=== PATIENT | female | born 2000 | race Caucasian/White ===

== ENCOUNTER → 2021-04-19 | Outpatient (CLI) | payer BC ==
[2021-04-19 13:22] LABS: BASO % 0.3 % (0.0-1.0); EOS # 0.1 10^3/uL (0.0-0.5); EOS % 0.8 % (0.0-3.0); HEMATOCRIT 38.4 % (36.0-47.0); HEMOGLOBIN 12.4 g/dl (12.0-15.5); LYMPH # 1.3 10^3/uL (1.5-5.0); LYMPH % 17.4 % (24.0-44.0); MEAN CORPUSCULAR HEMOGLOBIN 26.8 pg (27.0-33.0); MEAN CORPUSCULAR HGB CONC 32.3 g/dl (32.0-36.5); MEAN CORPUSCULAR VOLUME 82.9 fl (80.0-96.0); MONO # 0.5 10^3/uL (0.0-0.8); MONO % 6.9 % (2.0-8.0); NEUTROPHILS # 5.7 10^3/uL (1.5-8.5); NEUTROPHILS % 74.5 % (36.0-66.0); PLATELET COUNT, AUTOMATED 312 10^3/uL (150-450); RED BLOOD COUNT 4.63 10^6/uL (4.00-5.40); WHITE BLOOD COUNT 7.6 10^3/uL (4.0-10.0)
[2021-04-19 14:41] LABS: HEPATITIS C VIRUS ABY INDEX 0.1 INDEX (<0.8); HIV 1&2 SCREEN CENTAUR NEGATIVE (NEGATIVE)
[2021-04-19 16:51] LABS: GC DNA AMPLIFICATION NEGATIVE (NEGATIVE)
== END ==
LOC: M PLALAB 09:50
PROVIDERS: ATTEND Specialist
DX: Z36.9 Encounter for antenatal screening, unspecified (principal); Z3A.00 Weeks of gestation of pregnancy not specified

== ENCOUNTER → 2021-05-13 | Outpatient (REF) | payer BC | LOC: M SFHCWAGY 13:04 | PROVIDERS: ATTEND Advanced Practice Midwife | DX: Z36.9 Encounter for antenatal screening, unspecified (principal); Z3A.00 Weeks of gestation of pregnancy not specified ==

== ENCOUNTER → 2021-05-14 | Outpatient (CLI) | payer BC | LOC: M PLALAB 08:23 | PROVIDERS: ATTEND Advanced Practice Midwife | DX: Z34.81 Encounter for supervision of other normal pregnancy, first trimester (principal) ==

== ENCOUNTER → 2021-07-05 | Outpatient (CLI) | payer BC | LOC: M WHC 08:58 | PROVIDERS: ATTEND Advanced Practice Midwife | DX: Z34.02 Encounter for supervision of normal first pregnancy, second trimester (principal); Z3A.20 20 weeks gestation of pregnancy ==

== ENCOUNTER → 2021-07-22 | Outpatient (CLI) | payer BC | LOC: M WHC 07:15 | PROVIDERS: ATTEND Obstetrics & Gynecology | DX: Z36.2 Encounter for other antenatal screening follow-up (principal) ==

== ENCOUNTER → 2021-08-08 | Outpatient (REF) | payer BC | LOC: M PLALAB 15:03 | PROVIDERS: ATTEND Advanced Practice Midwife | DX: Z53.20 Procedure and treatment not carried out because of patient's decision for unspecified reasons (principal) ==

== ENCOUNTER → 2021-08-23 | Outpatient (CLI) | payer OTHER ==
[2021-08-23 15:11] LABS: HEMATOCRIT 33.7 % (36.0-47.0); MEAN CORPUSCULAR HEMOGLOBIN 27.6 pg (27.0-33.0); MEAN CORPUSCULAR HGB CONC 32.6 g/dl (32.0-36.5); MEAN CORPUSCULAR VOLUME 84.5 fl (80.0-96.0); PLATELET COUNT, AUTOMATED 283 10^3/uL (150-450); RED BLOOD COUNT 3.99 10^6/uL (4.00-5.40); WHITE BLOOD COUNT 6.2 10^3/uL (4.0-10.0)
[2021-08-23 16:39] LABS: GC DNA AMPLIFICATION NEGATIVE (NEGATIVE)
== END ==
LOC: M PLALAB 09:30
PROVIDERS: ATTEND Advanced Practice Midwife
DX: Z34.02 Encounter for supervision of normal first pregnancy, second trimester (principal)

== ENCOUNTER 2021-10-28 05:12 | Outpatient (CLI) | payer OTHER ==
[~2021-10-28] VITALS: Ht 154.9 cm; Wt 104.3 kg
[2021-10-28 05:32] VITALS: BP 121/74
[2021-10-28] MEDS ORDERED: LR 500 ML IV ONE (06:55)
[2021-10-28 07:06] VITALS: BP 110/59
[2021-10-28 07:35] LABS: HEMATOCRIT 31.4 % (36.0-47.0); HEMOGLOBIN 9.9 g/dl (12.0-15.5); MEAN CORPUSCULAR HEMOGLOBIN 25.3 pg (27.0-33.0); MEAN CORPUSCULAR HGB CONC 31.5 g/dl (32.0-36.5); MEAN CORPUSCULAR VOLUME 80.3 fl (80.0-96.0); PLATELET COUNT, AUTOMATED 293 10^3/uL (150-450); RED BLOOD COUNT 3.91 10^6/uL (4.00-5.40); WHITE BLOOD COUNT 6.7 10^3/uL (4.0-10.0)
[2021-10-28 07:49] LABS: POTASSIUM SERUM 4.1 MEQ/L (3.5-5.1)
[2021-10-28 08:13] VITALS: BP 112/59
== END 2021-10-28 08:20 | disposition home or self-care (01) ==
LOC: M LDO 05:12
PROVIDERS: ATTEND Obstetrics & Gynecology
DX: O21.8 Other vomiting complicating pregnancy (principal); Z3A.00 Weeks of gestation of pregnancy not specified
CPT/HCPCS: 36415; 59025; 59412; 80051; 85027; 96360; G0378

== ENCOUNTER 2021-11-21 08:58 | Outpatient (CLI) | payer OTHER ==
[~2021-11-21] VITALS: Ht 154.9 cm; Wt 107.4 kg
[2021-11-21] MEDS ORDERED: PRENTAB9 PO (09:11)
[2021-11-21] MEDS ORDERED: HOME MED LIST COMPLETE! XX SCH (09:15)
[2021-11-21 09:24] VITALS: BP 103/63
[2021-11-21 09:58] VITALS: BP 110/58
[2021-11-21 11:00] VITALS: BP 99/58
[2021-11-21 12:30] VITALS: BP 123/60
[2021-11-21] MEDS ORDERED: diphenhydrAMINE 50MG CAP PO SCH (13:00)
[2021-11-21] MEDS ORDERED: diphenhydrAMINE 25MG CAP PO SCH (13:30)
== END 2021-11-21 13:31 | disposition home or self-care (01) ==
LOC: M LDO 08:58
PROVIDERS: ATTEND Obstetrics & Gynecology
DX: O47.1 False labor at or after 37 completed weeks of gestation (principal); Z3A.39 39 weeks gestation of pregnancy; O99.213 Obesity complicating pregnancy, third trimester; E66.9 Obesity, unspecified
CPT/HCPCS: 59025; 76815; G0463

== ENCOUNTER 2021-11-26 18:33 | Inpatient (IN) | payer OTHER ==
[2021-11-26] VITALS (20 sets, daily range): BP systolic 96–157; BP diastolic 52–91
[~2021-11-26] VITALS: Ht 154.9 cm; Wt 107.3 kg
[~2021-11-26 18:33] MED LIST: PRENTAB9 PO
[2021-11-26] MEDS ORDERED: HOME MED LIST COMPLETE! XX SCH (18:50)
[2021-11-26] MEDS ORDERED: METHYLERGONOVINE MALEATE 0.2 MG/ML VIAL (J2210) IM PRN (19:25)
[2021-11-26] MEDS ORDERED: OXYTOCIN INJ 10 UNITS/ML VIAL (J2590) IV PRN (19:25)
[2021-11-26] MEDS ORDERED: TRANEXAMIC ACID INJection 1,000 MG in NS 100 ML IV PRN (19:25)
[2021-11-26] MEDS ORDERED: LACTATED RINGER'S 1000 ML IV ONE (19:25)
[2021-11-26] MEDS ORDERED: OXYTOCIN DRIP 30 UNITS in IV 1 EA IV PRN ×4 (19:25)
[2021-11-26] MEDS ORDERED: FENTANYL 2MCG/ML ROPIVACAINE 0.2% IN 0.9% NACL 100ML IVBAG As Ordered ONE (19:38)
[2021-11-26 19:43] LABS: HEMATOCRIT 34.1 % (36.0-47.0); MEAN CORPUSCULAR HEMOGLOBIN 24.4 pg (27.0-33.0); MEAN CORPUSCULAR HGB CONC 32.3 g/dl (32.0-36.5); MEAN CORPUSCULAR VOLUME 75.6 fl (80.0-96.0); PLATELET COUNT, AUTOMATED 343 10^3/uL (150-450); RED BLOOD COUNT 4.51 10^6/uL (4.00-5.40); WHITE BLOOD COUNT 9.1 10^3/uL (4.0-10.0)
[2021-11-26] MEDS: LR 1,000 ML IV SCH ×2 (20:12→22:29)
[2021-11-26] MEDS ORDERED: FENTANYL/ROPIVACAINE/NACL BAG 100 ML EPIDURAL SCH (20:15)
[2021-11-26] MEDS ORDERED: LR 500 ML IV PRN (20:15)
[2021-11-26] MEDS ORDERED: diphenhydrAMINE 50MG/ML VIAL (J1200) IV PRN (20:15)
[2021-11-26] MEDS ORDERED: EPIDURAL/PCA KEYS XX PRN (20:15)
[2021-11-26] MEDS ORDERED: NALOXONE INJ 0.4MG/1ML VIAL (J2310 PER 1MG) IV PRN (20:15)
[2021-11-26] MEDS ORDERED: ONDANSETRON 4MG 2ML VIAL IV PRN (20:15)
[2021-11-26] MEDS ORDERED: ePHEDrine SULFATE 25 MG/5 ML(5MG/ML) SYRINGE IVP PRN (20:15)
[2021-11-26] MEDS ORDERED: LR 1,000 ML IV SCH (22:30)
[2021-11-26] MEDS ORDERED: OXYTOCIN DRIP 30 UNITS in IV 1 EA IV SCH (22:30)
[2021-11-27] VITALS (12 sets, daily range): BP systolic 107–157; BP diastolic 61–87
[2021-11-27] MEDS ORDERED: AZITHROMYCIN INJ 500 MG, VIAL MATE ADAPTER 1 EACH in NS 250 ML IV ONE (03:15)
[2021-11-27] MEDS ORDERED: ACETAMINOPHEN 650 MG SUPP PR ONE (03:15)
[2021-11-27] MEDS ORDERED: BUPIVACAINE HCL 0.25% 10ML VIAL SC ONE (03:15)
[2021-11-27] MEDS ORDERED: ceFAZolin SOD 2 GM in IV 1 EA IV ONE (03:15)
[2021-11-27] MEDS ORDERED: ceFAZolin 2 GM/D5W 50 ML IV BAG (J0690 PER 500MG) As Ordered ONE (03:17)
[2021-11-27] MEDS ORDERED: BICITRA 30ML SOLN UDC As Ordered ONE (03:18)
[2021-11-27] MEDS ORDERED: BUPIVACAINE HCL 0.25% 10ML VIAL As Ordered ONE (03:18)
[2021-11-27] MEDS ORDERED: AZITHROMYCIN INJ 500MG VIAL As Ordered ONE (03:18)
[2021-11-27] MEDS ORDERED: BICITRA 30ML SOLN UDC PO ONE (03:30)
[2021-11-27] MEDS ORDERED: KETOROLAC 60MG 2ML VIAL As Ordered ONE (03:54)
[2021-11-27] MEDS ORDERED: ONDANSETRON 4MG 2ML VIAL As Ordered ONE (03:54)
[2021-11-27] MEDS ORDERED: MORPHINE PRES-FREE INJ 10 MG/10 ML VIAL As Ordered ONE (03:54)
[2021-11-27] MEDS ORDERED: LIDOCAINE 2% W/EPINEPHRINE 20ML VIAL **PRES FREE As Ordered ONE (03:54)
[2021-11-27] MEDS ORDERED: OXYTOCIN 30 UNITS IN 0.9% NaCl 500ML IV BAG (J2590) As Ordered ONE (03:59)
[2021-11-27 04:21] LABS: CORD GAS ABE V -4.4; CORD GAS HCO3 V 22.5 MEQ/L; CORD GAS O2 SAT V 65.5 %; CORD GAS PCO2 V 47.5 mmHg; CORD GAS PH V 7.293 UNITS; CORD GAS TCO2 V 23.9 MEQ/L
[2021-11-27 04:22] LABS: CORD GAS ABE A -3.5; CORD GAS HCO3 A 25.5 MEQ/L; CORD GAS O2 SAT A 16.2 %; CORD GAS PCO2 A 61.4 mmHg; CORD GAS PH A 7.236 UNITS; CORD GAS PO2 A 11.6 mmHg; CORD GAS SBC A 19.5 MEQ/L; CORD GAS TCO2 A 27.4 MEQ/L
[2021-11-27] MEDS ORDERED: OXYTOCIN DRIP 30 UNITS in IV 1 EA IV SCH (05:05)
[2021-11-27] MEDS ORDERED: ACETAMINOPHEN TAB 650MG DOSE (2X325MG) PO PRN (05:05)
[2021-11-27] MEDS ORDERED: ANUSOL HC CREAM 30GM TOP PRN (05:05)
[2021-11-27] MEDS ORDERED: OXYTOCIN DRIP 30 UNITS in IV 1 EA IV ONE (05:05)
[2021-11-27] MEDS ORDERED: ACETAMINOPHEN 500 MG TAB PO PRN (05:05)
[2021-11-27] MEDS ORDERED: OXYTOCIN INJ 10 UNITS/ML VIAL (J2590) IV ONE (05:05)
[2021-11-27] MEDS ORDERED: RHOGAM 300 MCG (1500 IU) INJ (J2790) IM SCH (05:05)
[2021-11-27] MEDS ORDERED: DOCUSATE SODIUM 100MG CAPSULE PO PRN (05:05)
[2021-11-27] MEDS ORDERED: MOM 30ML SUSPENSION UDC PO PRN (05:05)
[2021-11-27] MEDS: LR 1,000 ML IV SCH ×2 (05:05→13:29)
[2021-11-27] MEDS ORDERED: PERCOCET 5MG/325MG TAB PO PRN (05:05)
[2021-11-27] MEDS ORDERED: ONDANSETRON 4MG 2ML VIAL IV PRN (05:25)
[2021-11-27] MEDS ORDERED: METOCLOPRAMIDE INJ 10MG/2ML VIAL (J2765 PER 1) IV PRN (05:25)
[2021-11-27] MEDS ORDERED: fentaNYL 100 MCG/2 ML INJECTION IV PRN (05:25)
[2021-11-27] MEDS ORDERED: HYDROMORPHONE HCL 0.5 MG/ 0.5 ML SYRINGE (J1170 PER 1) IV PRN (05:25)
[2021-11-27] MEDS ORDERED: MEPERIDINE INJ 25 MG/ML VIAL (J2175) IV PRN (05:25)
[2021-11-27] MEDS ORDERED: oxyCODONE 5MG TAB PO PRN (05:25)
[2021-11-27] MEDS ORDERED: diphenhydrAMINE 50MG/ML VIAL (J1200) IV PRN (05:25)
[2021-11-27] MEDS ORDERED: NALOXONE INJ 0.4MG/1ML VIAL (J2310 PER 1MG) IV PRN ×2 (05:25)
[2021-11-27] MEDS ORDERED: **NOTE PATIENT COMMENT** MISC XX SCH (05:25)
[2021-11-27] MEDS ORDERED: oxyCODONE 5MG TAB As Ordered ONE (05:38)
[2021-11-27] MEDS: SLF 3 ML SYR IV SCH ×3 (06:00→22:30)
[2021-11-27] MEDS ORDERED: fentaNYL 100 MCG/2 ML INJECTION As Ordered ONE (06:03)
[2021-11-27] MEDS: KETOROLAC 30 MG/ML 1ML VIAL IV SCH ×3 (09:44→22:31)
[2021-11-27] MEDS: PRENATAL VITAMINS CHEWABLE TABLET PO SCH (09:44)
[2021-11-28 02:00] VITALS: BP 118/62
[2021-11-28 06:00] VITALS: BP 100/59
[2021-11-28] MEDS ORDERED: IBUPROFEN 600MG TAB PO PRN (06:00)
[2021-11-28 07:23] LABS: HEMATOCRIT 28.6 % (36.0-47.0); MEAN CORPUSCULAR HEMOGLOBIN 23.8 pg (27.0-33.0); MEAN CORPUSCULAR HGB CONC 30.8 g/dl (32.0-36.5); MEAN CORPUSCULAR VOLUME 77.3 fl (80.0-96.0); PLATELET COUNT, AUTOMATED 260 10^3/uL (150-450); WHITE BLOOD COUNT 8.1 10^3/uL (4.0-10.0)
[2021-11-28 07:25] LABS: HEMOGLOBIN 8.8 g/dl (12.0-15.5)
[2021-11-28] MEDS: SIMETHICONE 80MG CHEW TAB PO PRN ×2 (08:37→14:17)
[2021-11-28] MEDS: PRENATAL VITAMINS CHEWABLE TABLET PO SCH (08:37)
[2021-11-28] MEDS: PERCOCET 5MG/325MG TAB PO PRN ×2 (08:38→18:37)
[2021-11-28 09:59] VITALS: BP 116/62
[2021-11-28 14:00] VITALS: BP 114/55
[2021-11-28 18:00] VITALS: BP 103/60
[2021-11-28 22:20] VITALS: BP 108/69
[2021-11-29] MEDS: SIMETHICONE 80MG CHEW TAB PO PRN (02:24)
[2021-11-29 03:30] VITALS: BP 107/69
[2021-11-29 06:00] VITALS: BP 115/68
[2021-11-29] MEDS ORDERED: IBUP-1022 PO (07:12)
[2021-11-29] MEDS ORDERED: ACET-683 PO (07:12)
[2021-11-29] MEDS ORDERED: COLA100C5 PO (07:12)
[2021-11-29] MEDS ORDERED: MEASLES,MUMPS,RUBELLA VACCINE INJ (MMR-II) (90707) SC.IMMUN ONE (09:00)
[2021-11-29] MEDS: PRENATAL VITAMINS CHEWABLE TABLET PO SCH (09:09)
[2021-11-29 10:00] VITALS: BP 105/71
== END 2021-11-29 12:25 | disposition home or self-care (01) | DRG 773 ==
LOC: M LDO 18:33 → M LDI 18:54 → M OBS 11-27 06:30
PROVIDERS: ADMIT Obstetrics & Gynecology; ATTEND Obstetrics & Gynecology
PROC: 10907ZC Drainage of Amniotic Fluid, Therapeutic from Products of Conception, Via Natural or Artificial Opening (ICD-10-PCS; 2021-11-26)
PROC: 10D00Z1 Extraction of Products of Conception, Low, Open Approach (ICD-10-PCS; principal; 2021-11-27 04:01)
DX: O48.0 Post-term pregnancy (principal); Z37.0 Single live birth; Z3A.40 40 weeks gestation of pregnancy; O76 Abnormality in fetal heart rate and rhythm complicating labor and delivery; O77.0 Labor and delivery complicated by meconium in amniotic fluid